=== PATIENT | male | born 1985 | race Caucasian/White ===

== ENCOUNTER 2021-03-12 12:21 | Outpatient (CLI) | payer OTHER ==
--- NOTE | 2021-03-12 17:09 | XRAY Report ---
PROCEDURE: Shoulder 3 View LT INDICATIONS: STRAIN OF MUSCLE, FASCIA AND TENDON OF L SHOULDER TECHNIQUE: 3 views of the shoulder were acquired. COMPARISON: None. FINDINGS: Bones: No fractures or dislocations. No suspicious bony lesions. Visualized ribs appear intact. M ild left acromioclavicular joint osteoarthritis. Soft tissues: No suspicious soft tissue calcifications. IMPRESSION: Mild left acromioclavicular joint osteoarthritis. Reviewed by: Sharon العلي MD, PhD on 03/12/2021 5:07 PM PST Approved by: Sharon العلي MD, PhD on 03/12/2021 5:07 PM PST Station ID: [id number]
== END 2021-03-12 23:59 | disposition home or self-care (01) ==
LOC: DI.N 12:21
PROVIDERS: ATTEND Physician Assistant Medical
DX: S46.912A Strain of unspecified muscle, fascia and tendon at shoulder and upper arm level, left arm, initial encounter (principal); M19.012 Primary osteoarthritis, left shoulder

== ENCOUNTER 2021-05-01 14:42 | Outpatient (CLI) ==
--- NOTE | 2021-05-01 17:34 | XRAY Report ---
PROCEDURE: Shoulder 2 View LT INDICATIONS: LEFT SHOULDER PAIN TECHNIQUE: 2 views of the shoulder were acquired. COMPARISON: X-ray left shoulder, 3 views, 03/12/2021. FINDINGS: Bones: No fractures or dislocations. No suspicious bony lesions. Mild acromioclavicular joint dege neration. Visualized ribs appear intact. Soft tissues: No suspicious soft tissue calcifications. IMPRESSION: No acute osseous abnormalities. Mild degenerative joint disease. Reviewed by: Brittni José MD on 05/01/2021 5:32 PM PST Approved by: Brittni José MD on 05/01/2021 5:32 PM PST Station ID: [id number]
== END 2021-05-01 14:43 | disposition home or self-care (01) ==
LOC: DI.WOS 14:42
PROVIDERS: ATTEND Physician Assistant
DX: S46.912A Strain of unspecified muscle, fascia and tendon at shoulder and upper arm level, left arm, initial encounter (principal); M19.012 Primary osteoarthritis, left shoulder

== ENCOUNTER 2021-06-18 13:31 | Outpatient (CLI) | payer OTHER ==
--- NOTE | 2021-06-18 16:50 | MRI Report ---
PROCEDURE: Shoulder LT W/O INDICATIONS: LEFT SHOLDER ROTATOR CUFF INJURY TECHNIQUE: Noncontrast oblique coronal T2 fast spin echo with fat saturation, oblique sagittal T1 spin echo and T2 fast spin echo with fat saturation, axial T1 spin echo and T2 fast spin echo with fat saturation t hrough the shoulder. COMPARISON: None. FINDINGS: Image quality: Excellent. Rotator cuff: The supraspinatus, infraspinatus, and subscapularis tendons appear intact throughout. No rotator cuff muscle atrophy on sagittal images. Bones and bursae: No bone marrow contusions or fractures. Mild acromioclavicular joint degeneration. The acromion demonstrates conventional anatomy, without an os acromiale. A small amount of subacrom ial/subdeltoid bursal fluid is present. Capsule and soft tissues: In the absence of intra-articular contrast, the labrum and glenohumeral li gaments appear intact. The long head of the biceps tendon demonstrates normal location and morpholog y. The rotator interval appears normal, without fibrosis. The coracohumeral ligament is normal in t hickness. IMPRESSION: 1. No rotator cuff tear. 2. Mild subacromial bursitis. 3. Acromioclavicular joint osteoarthritis. Reviewed by: Stan Gunn MD on 06/18/2021 4:49 PM PDT Approved by: Stan Gunn MD on 06/18/2021 4:49 PM PDT Station ID: [id number]
== END 2021-06-18 13:32 | disposition home or self-care (01) ==
LOC: DI 13:31
PROVIDERS: ATTEND Physician Assistant
DX: S46.002A Unspecified injury of muscle(s) and tendon(s) of the rotator cuff of left shoulder, initial encounter (principal); M75.52 Bursitis of left shoulder; M19.012 Primary osteoarthritis, left shoulder